=== PATIENT | female | born 1960 | race Caucasian/White ===

== ENCOUNTER → 2018-12-15 | Emergency (ER) | payer OTHER ==
[~2018-12-15] VITALS: Ht 167.6 cm; Wt 74.4 kg
[~2018-12-15] MED LIST: MOTRIN800 MG PO; PEPCID40 MG PO; PHENERGAN25 MG PO; POLY119PG PO; SURFAK240 M1 PO; SYNTHROID100 MCG PO; SYNTHROID125 MCG PO; ULTRAM50 MG PO
== END | disposition home or self-care (01) ==
LOC: ER 21:11
DX: K29.70 Gastritis, unspecified, without bleeding (principal); R11.2 Nausea with vomiting, unspecified

== ENCOUNTER 2019-07-27 11:40 | Emergency (ER) | payer OTHER ==
[~2019-07-27] VITALS: Ht 170.2 cm; Wt 74.8 kg
[2019-07-27] MEDS ORDERED: SYNTHROID125 MCG (11:56)
== END 2019-07-27 15:03 | disposition home or self-care (01) ==
LOC: ER 11:40
DX: J06.9 Acute upper respiratory infection, unspecified (principal)

== ENCOUNTER 2020-10-07 13:29 | Emergency (ER) | payer OTHER ==
[~2020-10-07] VITALS: Ht 170.2 cm; Wt 79.4 kg
[~2020-10-07 13:29] MED LIST changes: +SYNTHROID125 MCG
[2020-10-07] MEDS ORDERED: PEPCID AC20 MG PO (18:58)
[2020-10-07] MEDS ORDERED: DICY20TA PO (18:58)
[2020-10-07] MEDS ORDERED: BUTALBIT-ACETA1 EACH PO (18:58)
[2020-10-07] MEDS ORDERED: CIPRO500 MG PO (18:58)
[2020-10-07] MEDS ORDERED: FLAGYL500MG PO (18:58)
== END 2020-10-07 20:15 | disposition home or self-care (01) ==
LOC: ER 13:29
DX: K57.92 Diverticulitis of intestine, part unspecified, without perforation or abscess without bleeding (principal); R10.32 Left lower quadrant pain